=== PATIENT | male | born 1990 | race African-American/Black ===

== ENCOUNTER 2023-08-17 13:43 | Inpatient (IN) | payer OTHER ==
[2023-08-17] MEDS ORDERED: ACETAMINOPHEN INJECTION 100 ML IVPB ONE (14:36)
[2023-08-17] MEDS: ACETAMINOPHEN 1000 MG/100 ML BAG IVPB ONE (14:49)
[2023-08-17 14:55] LABS: BASO % 0.5 % (0-2.0); HEMATOCRIT 45.3 % (35.4-49); HEMOGLOBIN 15.5 GM/dL (11.7-16.9); LYMPH % 25.2 % (8-40); MCH 28.8 pg (25.7-33.7); MCHC 34.1 g/dl (32.0-35.9); MEAN CELL VOLUME 84.5 fl (80-96); MEAN PLT VOLUME 8.2 fl (7.5-11.1); NEUT % 64.3 % (42.8-82.8); PLATELET COUNT 260 10^3/uL (134-434); RBC 5.36 M/mm3 (4.00-5.60); RDW 16.7 % (11.9-15.9); WHITE BLOOD COUNT 7.5 K/mm3 (4.0-10.0)
[2023-08-17 15:14] LABS: CHLORIDE 103 mmol/L (98-107)
[2023-08-17 15:16] LABS: CALCIUM 8.2 mg/dL (8.5-10.1)
[2023-08-17 15:17] LABS: ALBUMIN 3.2 g/dl (3.4-5.0); BLOOD UREA NITROGEN 5.9 mg/dL (7-18); CO2 31 mmol/L (21-32); GLUCOSE,RANDOM 79 mg/dL (74-106)
[2023-08-17 15:21] LABS: TOT PROT 9.5 g/dl (6.4-8.2)
[2023-08-17 15:26] LABS: ANION GAP -21 mmol/L (4-13)
[2023-08-17 16:25] LABS: POTASSIUM 3.6 mmol/L (3.5-5.1)
[2023-08-17 16:26] LABS: CALCIUM 9.2 mg/dL (8.5-10.1)
[2023-08-17 16:30] LABS: CREATININE 0.9 mg/dL (0.55-1.3)
[2023-08-17 16:37] LABS: INR 1.03 (0.83-1.09); PROTHROMBIN TIME (PATIENT) 11.6 SEC (9.7-13.0)
[2023-08-17 16:40] LABS: ACTIVATED PTT 34.2 SECONDS (25.2-36.5)
[2023-08-17] MEDS ORDERED: METOCLOPRAMIDE HCL INJECTION 10 MG/2 ML VIAL ONE (17:30)
[2023-08-17] MEDS: METOCLOPRAMIDE HCL INJECTION 10 MG/2 ML VIAL IVPUSH ONE (17:38)
[2023-08-18 00:43] VITALS: BMI 20.2
[2023-08-18 07:35] LABS: HEMATOCRIT 43.4 % (35.4-49); HEMOGLOBIN 14.5 GM/dL (11.7-16.9); MCH 28.8 pg (25.7-33.7); MCHC 33.3 g/dl (32.0-35.9); MEAN CELL VOLUME 86.5 fl (80-96); MEAN PLT VOLUME 8.9 fl (7.5-11.1); PLATELET COUNT 236 10^3/uL (134-434); RBC 5.02 M/mm3 (4.00-5.60); RDW 14.9 % (11.9-15.9); WHITE BLOOD COUNT 6.8 K/mm3 (4.0-10.0)
[2023-08-18 07:52] LABS: POTASSIUM 3.6 mmol/L (3.5-5.1)
[2023-08-18 07:54] LABS: CALCIUM 9.2 mg/dL (8.5-10.1)
[2023-08-18 07:55] LABS: ALBUMIN 3.3 g/dl (3.4-5.0); BLOOD UREA NITROGEN 7.9 mg/dL (7-18)
[2023-08-18 07:56] LABS: MAGNESIUM 1.9 mg/dL (1.8-2.4)
[2023-08-18 07:58] LABS: CREATININE 0.8 mg/dL (0.55-1.3); PHOSPHOROUS 3.6 mg/dL (2.5-4.9)
[2023-08-18 07:59] LABS: BILIRUBIN,TOTAL 0.5 mg/dL (0.2-1)
[2023-08-18 08:20] LABS: TOT PROT 6.7 g/dl (6.4-8.2)
[2023-08-18] MEDS ORDERED: ENOXAPARIN NA (PORCINE) 40 MG/0.4 ML DISP.SYRIN SQ SCH (10:00)
[2023-08-18 18:14] VITALS: RESP 18
[2023-08-18] MEDS: ACETAMINOPHEN 1000 MG/100 ML BAG IVPB PRN (23:11)
[2023-08-20 18:07] VITALS: BP 121/58; PULSE 70; TEMP 98.4
== END 2023-08-20 18:15 | disposition short-term general hospital (02) | DRG 42 ==
LOC: JER 13:43 → JERBED 20:17 → J5S 08-18 00:12
PROVIDERS: ADMIT Internal Medicine; ATTEND Internal Medicine
DX: G91.9 Hydrocephalus, unspecified (principal); G80.9 Cerebral palsy, unspecified; H55.00 Unspecified nystagmus; J45.909 Unspecified asthma, uncomplicated
CPT/HCPCS: 36415; 70260-TC-FY; 70450-TC; 71046-TC-FY; 74019-TC-FY; 80048; 80053; 82607; 82746; 83735; 84100; 84439; 84443; 85025; 85027; 85610; 85730; 93005; 93010; 99285-25; J0131

== ENCOUNTER 2023-09-04 15:42 | Emergency (ER) | payer OTHER ==
[2023-09-04 16:08] VITALS: BP 119/71; PULSE 93; RESP 16; TEMP 98.5; BMI 25.0
== END 2023-09-04 17:07 | disposition home or self-care (01) ==
LOC: JERFT 15:42
DX: Z48.01 Encounter for change or removal of surgical wound dressing (principal)
CPT/HCPCS: 99281-25